=== PATIENT | male | born 1955 | race Caucasian/White ===

== ENCOUNTER 2016-12-27 23:36 | Emergency (ER) | payer SELFPAY ==
[~2016-12-27] VITALS: Ht 170.2 cm; Wt 80.8 kg
[2016-12-28 02:30] VITALS: BP 148/93
== END 2016-12-28 02:30 | disposition home or self-care (01) ==
LOC: EME 23:36
DX: R21 Rash and other nonspecific skin eruption (principal); Z87.891 Personal history of nicotine dependence
CPT/HCPCS: 99281; 99283